=== PATIENT | female | born 2000 | race American Indian/Alaskan Native ===

== ENCOUNTER 2019-11-26 16:58 | Emergency (ER) | payer SELFPAY ==
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
[2019-11-26] MEDS ORDERED: ACETAMINOPHEN 500 MG TAB PO ONE (20:09)
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
[2019-11-27 01:40] VITALS: BP 115/80
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
== END 2019-11-27 01:37 | disposition left against medical advice (07) ==
LOC: ED 16:58
DX: O9A.212 Injury, poisoning and certain other consequences of external causes complicating pregnancy, second trimester (principal); S00.83XA Contusion of other part of head, initial encounter; R10.84 Generalized abdominal pain; Z3A.19 19 weeks gestation of pregnancy; Y04.2XXA Assault by strike against or bumped into by another person, initial encounter; Y93.89 Activity, other specified; Y92.89 Other specified places as the place of occurrence of the external cause; Y99.8 Other external cause status
CPT/HCPCS: 70486; 76700